=== PATIENT | male | born 1985 | race Caucasian/White ===

== ENCOUNTER → 2017-10-04 13:31 | Outpatient (CLI) | payer BC, SELFPAY ==
--- NOTE | 2017-10-04 13:40 | MR_ITS ---
MR shoulder RT wo con HISTORY: ITS.REASON: ACUTE PAIN OF RIGHT SHOULDER, DECREASED ROM ORDERING PHYSICIAN: Cee Escobar PATIENT AGE: 32 years COMPARISON: None TECHNIQUE: Standard multiplanar multiecho sequences are performed without contrast. FINDINGS: No significant subacromial stenosis or acromioclavicular arthropathy. There is mild thickening of the supraspinatus tendon with increased T2 signal consistent with tendinopathy/tendinosis. No obvious tear of the supraspinatus or infraspinatus tendon. The subscapularis and teres minor tendons are intact. There is some mild thickening of the subscapularis tendon suggesting mild tendinopathy/tendinosis. No labral tear apparent. No significant effusion. Bicipital tendon is in place. There is a small amount of fluid deep to the entry aspect of the deltoid muscle. No fracture or dislocation. No bone bruise. There are small subcortical cyst of the humeral head which maybe seen with rotator cuff disease IMPRESSION: 1. Tendinopathy/tendinosis of the supraspinatus and subscapularis tendons. No evidence of rotator cuff tear.. 2. Small amount of fluid deep to the anterior portion of the deltoid nonspecific 3. Small subcortical cysts of the humeral head at the greater tuberosity region
== END ==
PROVIDERS: PCP Family Medicine; Visit Provider Nurse Practitioner Family
DX: M25.511 Pain in right shoulder (principal); M25.611 Stiffness of right shoulder, not elsewhere classified
CPT/HCPCS: 73221

== ENCOUNTER → 2017-10-20 15:04 | Outpatient (CLI) | payer BC, SELFPAY ==
--- NOTE | 2017-10-20 15:08 | XR_ITS ---
EXAM: XR cervical spine 5V HISTORY: ITS.REASON: CERVICALGIA, PARESTHESIA AND ANETHESIA OF SKIN ORDERING PHYSICIAN: Cee Escobar PATIENT AGE: 32 years COMPARISON: None FINDINGS: There is slight reversal cervical lordosis. No fracture or dislocation. No lytic or blastic change. The disc spaces are well-preserved. No prevertebral soft tissue swelling. No cervical ribs. IMPRESSION: Slight reversal cervical lordosis which may be due to patient positioning or muscle spasm
== END ==
PROVIDERS: PCP Nurse Practitioner Family; Visit Provider Nurse Practitioner Family
DX: R20.2 Paresthesia of skin (principal); R20.0 Anesthesia of skin; M54.2 Cervicalgia
CPT/HCPCS: 72050

== ENCOUNTER 2017-11-01 14:00 | Outpatient (RCR) | payer BC, SELFPAY | END 2017-11-02 14:01 | disposition home or self-care (01) | LOC: OT 14:00 | PROVIDERS: PCP Family Medicine; Visit Provider Nurse Practitioner Family | DX: M75.81 Other shoulder lesions, right shoulder (principal) | CPT/HCPCS: 97014; 97033; 97110; 97163; 97165; G0283 ==

== ENCOUNTER 2017-12-15 13:00 | Outpatient (RCR) | payer BC, SELFPAY | END 2017-12-15 13:01 | disposition home or self-care (01) | LOC: OT 13:00 | PROVIDERS: PCP Nurse Practitioner Family; Visit Provider Orthopaedic Surgery | DX: M75.101 Unspecified rotator cuff tear or rupture of right shoulder, not specified as traumatic (principal); M50.30 Other cervical disc degeneration, unspecified cervical region | CPT/HCPCS: 97014; 97110; 97163; 97166; G0283 ==

== ENCOUNTER 2018-05-19 15:00 | Outpatient (RCR) | payer BC, SELFPAY | END 2018-05-19 15:01 | disposition home or self-care (01) | LOC: PT 15:00 | PROVIDERS: Visit Provider Orthopaedic Surgery | DX: M25.511 Pain in right shoulder (principal) | CPT/HCPCS: 97010; 97014; 97016; 97033; 97035; 97140; 97163; G0283 ==